=== PATIENT | female | born 1980 | race Caucasian/White ===

== ENCOUNTER 2023-01-06 10:44 | Day surgery (SDC) | payer BC, SELFPAY ==
--- NOTE | 2023-01-06 10:50 | US_ITS ---
The [address] [address] Patient Name: KIM FERNANDO MRN: [id number] date: 1980 Sex: F Assigned Patient Location: [place] Current Patient Location: Accession/Order Number: [id number] Exam Date: 01/06/2023 11:30 Report Date: 01/06/2023 13:03 At the request of: BIN DIOR Procedure: US biopsy thyroid EXAMINATION: US biopsy thyroid HISTORY: Left thyroid nodule COMPARISON: No relevant comparison available. TECHNIQUE: After obtaining informed consent, an ultrasound-guided biopsy was performed in the usual sterile manner. FINDINGS: IMAGING: Ultrasound BIOPSY NEEDLE: 25-gauge 2 inch SPECIMEN TYPE, #, LOCATION: 4 samples, 1.8 cm inferior left thyroid nodule MEDICATION: 3 cc 1% buffered lidocaine COMPLICATIONS: None. LABORATORY: As ordered by clinician. Molecular studies sent OTHER: Negative. US/US biopsy thyroid IMPRESSION: Uneventful ultrasound guided biopsy. The patient was instructed to obtain follow up care and biopsy results from the referring physician. Electronically authenticated by: EMILIO CHENEY Date: 01/06/2023 13:03
[2023-01-06 11:10] VITALS: BP 109/57; PULSE 77; O2SAT 96
[2023-01-06 12:45] VITALS: BMI 37.9
[2023-01-06] MEDS: LIDOCAINE HCL 10 ML, SODIUM BICARBONATE 1 MEQ INJ (12:56)
== END 2023-01-06 12:30 | disposition home or self-care (01) ==
LOC: US 10:45
PROVIDERS: Radiology Diagnostic Radiology; Visit Provider Otolaryngology
DX: E04.1 Nontoxic single thyroid nodule (principal)
CPT/HCPCS: 10005; 88173